=== PATIENT | male | born 1975 | race Caucasian/White ===

== ENCOUNTER 2020-04-15 13:58 | Emergency (ER) | payer OTHER ==
[~2020-04-15] VITALS: Ht 177.8 cm; Wt 90.9 kg
[~2020-04-15 13:58] MED LIST: NEXIUM PO; NO HOME MEDICATIONS; OXYCODONE5 MG PO; TYLENOL 500MG500 MG PO
[2020-04-15 14:04] VITALS: BP 139/80; TEMP 99.1
[2020-04-15 15:02] VITALS: PULSE 84
[2020-04-15] MEDS ORDERED: NORCO 325 MG-51 TAB PO (15:21)
== END 2020-04-15 15:03 | disposition home or self-care (01) ==
LOC: COL.ER 13:58
DX: S90.32XA Contusion of left foot, initial encounter (principal); Z88.6 Allergy status to analgesic agent; V86.99XA Unspecified occupant of other special all-terrain or other off-road motor vehicle injured in nontraffic accident, initial encounter